=== PATIENT | female | born 1980 | race Hispanic/Latino ===

== ENCOUNTER → 2018-05-15 11:55 | Outpatient (CLI) | payer OTHER, SELFPAY ==
[2018-05-15 19:45] LABS: HIV 1 and 2 Antibody NEGATIVE (NEGATIVE)
[2018-05-20 10:57] LABS: Hepatitis A Antibody IgM NONREACTIVE; Hepatitis Acute Panel Interp 0.03; Hepatitis B Core Antibody IgM NONREACTIVE; Hepatitis B Surface Antigen NONREACTIVE; Hepatitis C Antibody NONREACTIVE
== END ==
PROVIDERS: Family Provider Family Medicine; PCP Family Medicine; Visit Provider Family Medicine
DX: Z11.3 Encounter for screening for infections with a predominantly sexual mode of transmission (principal); Z12.4 Encounter for screening for malignant neoplasm of cervix; Z11.51 Encounter for screening for human papillomavirus (HPV); Z20.2 Contact with and (suspected) exposure to infections with a predominantly sexual mode of transmission
CPT/HCPCS: 36415; 80074; 86703

== ENCOUNTER → 2019-02-20 10:10 | Outpatient (CLI) | payer OTHER, SELFPAY ==
[2019-02-20 11:09] LABS: Add Manual Diff / Slide Review NO; Basophils Absolute Auto 100 /uL (0-100); Basophils Percent Auto 1.1 % (0-2); Eosinophils Absolute Auto 0 /uL (0-450); Eosinophils Percent Auto 0.3 % (2-4); Hematocrit 38.6 % (36-46); Hemoglobin 13.2 g/dL (12.0-16.0); Lymphocytes Absolute Auto 2500 /uL (1100-4500); Lymphocytes Percent Auto 27.6 % (25-40); Mean Corpuscular HGB Conc 34.2 % (30-36); Mean Corpuscular Hemoglobin 31.4 PG (26-34); Mean Corpuscular Volume 91.9 fL (80-100); Monocytes Absolute Auto 300 /uL (0-900); Monocytes Percent Auto 3.7 % (3-14); Neutrophils Absolute Auto 6100 /uL (1500-7000); Neutrophils Percent Auto 67.3 % (50-75); Platelet Count 198 X10^3/uL (150-400); Red Blood Cell Count 4.21 X10^6/uL (4.0-5.2); Red Cell Distribution Width 12.6 % (11.6-14.8)
[2019-02-20 11:32] LABS: Alanine Aminotransferase 13 IU/L (9-52); Albumin 4.4 g/dL (3.5-5.0); Albumin Globulin Ratio 1.4 (1.0-2.8); Alkaline Phosphatase 44 U/L (38-126); Aspartate Aminotransferase 18 IU/L (14-36); BUN Creatinine Ratio 22.9 (6-22); Bilirubin Total 0.3 mg/dL (0.2-1.3); Blood Urea Nitrogen 16 mg/dL (7-17); Calcium 9.4 mg/dL (8.4-10.2); Carbon Dioxide 25 mmol/L (22-32); Chloride 103 mmol/L (98-107); Estimated Glomerular Filt Rate > 60.0 mL/min (>60); Globulin 3.2 g/dL (1.7-4.1); Glucose 84 mg/dL (70-100); HEMOLYSIS < 15 (0-50); Potassium 5.1 mmol/L (3.4-5.1); Sodium 137 mmol/L (137-145); Total Protein 7.6 g/dL (6.3-8.2)
== END ==
PROVIDERS: PCP Family Medicine; Visit Provider Hospitalist
DX: R10.9 Unspecified abdominal pain (principal)
CPT/HCPCS: 36415; 80053; 85025

== ENCOUNTER → 2019-02-26 08:42 | Outpatient (CLI) | payer OTHER, SELFPAY ==
--- NOTE | 2019-02-26 08:46 | DI.CT.S_ITS ---
PROCEDURE: CT KIDNEY URETER BLADDER (KUB) INDICATIONS: R flank pain TECHNIQUE: Noncontrast 5 mm thick sections acquired from the diaphragms to the symphysis. 5 mm thick coronal and sagittal reformats were then performed. For radiation dose reduction, the following was used: automated exposure control, adjustment of mA and/or kV according to patient size. COMPARISON: [facility], CT, CT-IVP, 03/07/2007, 9:36. [facility], CR, CHEST 2 VIEW, 01/14/2016, 18:31. FINDINGS: Image quality: Excellent. Lung bases: Lung bases are clear. Heart size is normal. Urinary system: Along the distalmost right ureter, there is a 2 mm stone seen, as on series 2 image 83. There is associated moderate right-sided hydroureter and hydronephrosis. No nonobstructing kidney stones are seen. The kidneys demonstrate normal sizes. No left-sided hydronephrosis is seen. Other solid organs: Liver is normal in size. Gallbladder wall is not thickened. Pancreas is normal in contours. Spleen is normal in size. No adrenal nodules. Peritoneum and bowel: Unenhanced bowel loops demonstrate normal wall thickness and caliber. No free fluid or air. Incidental note is made of a normal-appearing appendix. Nodes and vessels: No retroperitoneal or mesenteric adenopathy by size criteria. Aorta and inferior vena cava are normal in caliber. Abdominal wall: No ventral hernias. Pelvis: No free pelvic fluid. No inguinal hernias or adenopathy. Bones: No suspicious bony lesions. No vertebral body compression fractures. IMPRESSION: There is a 2 mm stone seen at the right ureterovesicular junction. The stone is believed to be within the distal right ureter, although differential diagnosis includes a phlebolith immediately adjacent to the distal ureter. There is associated moderate right-sided hydroureter and hydronephrosis. Incidental note is made of: Normal appendix Dictated by: Mendez Velazquez M.D. on 02/26/2019 at 9:06 Approved by: Mendez Velazquez M.D. on 02/26/2019 at 9:11
== END ==
PROVIDERS: PCP Family Medicine; Visit Provider Hospitalist
DX: R10.9 Unspecified abdominal pain (principal); N13.2 Hydronephrosis with renal and ureteral calculous obstruction
CPT/HCPCS: 74176

== ENCOUNTER → 2019-04-28 10:29 | Outpatient (CLI) | payer OTHER, SELFPAY ==
--- NOTE | 2019-04-28 | DI.US.S_ITS ---
PROCEDURE: US RENAL COMPLETE INDICATIONS: FLANK PAIN TECHNIQUE: Real-time scanning was performed of the kidneys and bladder, with image documentation. COMPARISON: [facility], CT, CT KIDNEY URETER BLADDER (KUB), 02/26/2019, 8:53. FINDINGS: Kidneys: Kidneys are normal in size. Right kidney measures 10 point cm long; left kidney measures 11.1 cm long. Right renal cortical thickness is 1.3 cm; left renal cortical thickness is 1.4 cm. Renal cortical echotexture is normal. No hydronephrosis. 6.6 mm superior pole nonobstructing left renal calcification. Bladder: Pre-void bladder volume is 435 mL. Post-void residual is 16 mL. Pre-void images demonstrate no intraluminal masses or stones. On pre-void images, bilateral ureteral jets are noted with color Doppler interrogation. (Of note, ureteral jets may not be detectable in up to 25% of cases due to insufficient differences in specific gravity between ureteral and bladder urine). Miscellaneous: No free pelvic fluid. IMPRESSION: 6.6 mm nonobstructing left renal calcification. Dictated by: Kulwinder SALGUERO Interpreted: Krista Del Valle MD on 04/28/2019 at 17:11 Approved by: Krista Del Valle M.D. on 04/28/2019 at 18:48
== END ==
PROVIDERS: PCP Family Medicine; Visit Provider Urology
DX: R10.9 Unspecified abdominal pain (principal); N28.89 Other specified disorders of kidney and ureter
CPT/HCPCS: 76770

== ENCOUNTER → 2019-06-03 08:35 | Outpatient (CLI) | payer OTHER, SELFPAY ==
[2019-06-03 09:48] LABS: Add Manual Diff / Slide Review NO; Basophils Absolute Auto 0 /uL (0-100); Basophils Percent Auto 0.5 % (0-2); Eosinophils Absolute Auto 100 /uL (0-450); Eosinophils Percent Auto 1.2 % (2-4); Hematocrit 37.5 % (36-46); Hemoglobin 12.9 g/dL (12.0-16.0); Lymphocytes Absolute Auto 2000 /uL (1100-4500); Lymphocytes Percent Auto 35.2 % (25-40); Mean Corpuscular HGB Conc 34.2 % (30-36); Mean Corpuscular Hemoglobin 31.7 PG (26-34); Mean Corpuscular Volume 92.6 fL (80-100); Monocytes Absolute Auto 300 /uL (0-900); Monocytes Percent Auto 5.5 % (3-14); Neutrophils Absolute Auto 3300 /uL (1500-7000); Neutrophils Percent Auto 57.6 % (50-75); Platelet Count 181 X10^3/uL (150-400); Red Blood Cell Count 4.05 X10^6/uL (4.0-5.2); Red Cell Distribution Width 12.7 % (11.6-14.8); White Blood Cell Count 5.8 X10^3/uL (4.5-11.0)
[2019-06-03 10:12] LABS: Alanine Aminotransferase 14 IU/L (9-52); Albumin Globulin Ratio 1.2 (1.0-2.8); Alkaline Phosphatase 42 U/L (38-126); Aspartate Aminotransferase 21 IU/L (14-36); Bilirubin Total 0.4 mg/dL (0.2-1.3); Blood Urea Nitrogen 14 mg/dL (7-17); Calcium 8.7 mg/dL (8.4-10.2); Carbon Dioxide 28 mmol/L (22-32); Chloride 105 mmol/L (98-107); Cholesterol 188 mg/dL (140-199); Estimated Glomerular Filt Rate > 60.0 mL/min (>60); Globulin 3.3 g/dL (1.7-4.1); Glucose 92 mg/dL (70-100); HDL Cholesterol 73 mg/dL (40-60); HEMOLYSIS < 15 (0-50); LDL Cholesterol Calculated 75 mg/dL (<100); Potassium 3.7 mmol/L (3.4-5.1); Sodium 139 mmol/L (137-145); Total Protein 7.3 g/dL (6.3-8.2); Triglycerides 200 mg/dL (35-150)
[2019-06-03 10:42] LABS: TSH w/ Reflex to FT4 0.88 uIU/mL (0.47-4.68)
== END ==
PROVIDERS: PCP Family Medicine; Visit Provider Family Medicine
DX: Z00.00 Encounter for general adult medical examination without abnormal findings (principal); Z13.220 Encounter for screening for lipoid disorders; Z13.29 Encounter for screening for other suspected endocrine disorder; Z13.6 Encounter for screening for cardiovascular disorders
CPT/HCPCS: 36415; 80053; 80061; 84443; 85025

== ENCOUNTER 2019-08-31 06:33 | Day surgery (SDC) | payer OTHER, SELFPAY ==
[2019-08-31 07:06] VITALS: BMI 26.6
[2019-08-31 07:09] VITALS: BP 109/74; PULSE 84; RESP 15; TEMP 36.7; O2SAT 100
[2019-08-31] MEDS: SODIUM CHLORIDE 0.9% 1,000 ML 200 ML IV (07:17)
--- NOTE | 2019-08-31 07:39 | PM.HP.1 ---
History of Present Illness History of Present Illness Date Patient Seen: 08/31/19 Time Patient Seen: 07:39 Chief complaint: [id number] Narrative: This is a 39-year-old female with a family history of colorectal cancer. There been no interval changes in her health. Please refer to the H& P dictated 07/10/2019 for further detail. Patient History Surgical History Anesthesia (Resolved) Status post dilation and curettage (Resolved 2001) Family & Social History Family History Father Age: 61 Hypertension Hyperlipidemia Mother Cancer Colon cancer Social History: household members spouse Tobacco & Substance use: Smoking Status Never smoker Meds Home Medications and Allergies Home Medications Medication Instructions Recorded Confirmed Type drospirenone 3 mg-ethinyl 1 tab PO QDAY #3 packet 06/08/19 08/31/19 Rx estradiol 0.03 mg tablet Allergies Allergy/AdvReac Type Severity Reaction Status Date / Time omeprazole [OMEPRAZOLE] Allergy Unknown RASH Verified 08/31/19 07:04 Review of Systems Review of Systems Narrative: A complete review of systems is negative except as noted in the HPI Exam Vital Signs (past 8 hours): - 08/31/19 07:09 Temperature 98.0 F Pulse Rate 84 Respiratory Rate 15 Blood Pressure 109/74 Pulse Oximetry 100 Oxygen Delivery Method Room Air Narrative Exam Narrative: General-no acute distress, well nourished HEENT-moist mucous membranes, no scleral icterus Neck-supple, no lymphadenopathy Chest- non labored respirations, clear to auscultation bilaterally Cardiac-regular rate no peripheral edema Abdomen-soft, nontender, non distended Extremities-warm, well perfused Neurological-alert and oriented, no focal deficits Assessment & Plan Assessment and plan (1) Screening for colon cancer: Current visit: No Status: Acute Assessment & Plan narrative: The patient requires colorectal screening and colonoscopy is recommended. Technical details were discussed. Risks, benefits, alternatives explained. Risks including but not limited to myocardial infarction, aspiration, bleeding, pain, missed lesion, incomplete examination, need for further radiographic studies, colonic perforation, and need for major abdominal surgery were discussed. All questions were answered to their satisfaction, and they are in agreement with this plan.
[2019-08-31] MEDS: fentaNYL 250 MCG/5 ML INJ IV (07:58)
[2019-08-31] MEDS: MIDAZOLAM 5 MG/5 ML VIAL IV (07:59)
--- NOTE | 2019-08-31 08:17 | PM.OP.ENDO ---
Operative Date/Time/Diagnoses Date of procedure: 08/31/19 Time of procedure: 08:17 Pre-op diagnosis: screening colonoscopy family history of colon cancer Post-op diagnosis: same Procedure & Clinicians Study performed: colonoscopy Same procedure as scheduled: Yes Indications: Is the 39-year-old female with a with first-degree family member with colon cancer who presents for screening Surgeon: Sandip Mendoza Procedure Notes SCOAP/Timeout: performed Procedure in detail: Patient placed in left lateral decubitus position. Time out was performed. Procedural sedation was administered with Versed and Fentanyl. A rectal exam demonstrated no external hemorrhoids no internal masses. Colonoscopy scope was placed into the rectum and advanced through the colon to the cecum. The ileocecal valve was identified. The scope was then slowly withdrawn examining colon thoroughly in all directions. The colonoscopy was notable for the following 1. No masses or polyps 2. Quality of prep excellent 3. Scope withdrawal time: 6 Sedation minutes: 20 Specimen(s): none sent Complications: none Impression: Normal colonoscopy Post-procedure Recommendations: Colonscopy in 5 years Disposition: same day surgery
[2019-08-31 08:19] VITALS: BP 111/72; PULSE 73; RESP 22; TEMP 36.2; O2SAT 97
[2019-08-31 08:24] VITALS: BP 112/69; PULSE 80; RESP 13; O2SAT 99
[2019-08-31 08:30] VITALS: BP 99/64; PULSE 70; RESP 14; O2SAT 100
[2019-08-31 08:55] VITALS: BP 106/65; PULSE 76; RESP 12; TEMP 36.1; O2SAT 98
== END 2019-08-31 09:06 | disposition home or self-care (01) ==
PROVIDERS: PCP Family Medicine; Visit Provider Surgery
PROC: 0DJD8ZZ Inspection of Lower Intestinal Tract, Via Natural or Artificial Opening Endoscopic (ICD-10-PCS; CPT 45378; principal; 2019-08-31 07:45)
DX: Z12.11 Encounter for screening for malignant neoplasm of colon (principal); Z80.0 Family history of malignant neoplasm of digestive organs
CPT/HCPCS: 45378; 99152; J2250; J3010

== ENCOUNTER → 2021-01-06 08:06 | Outpatient (CLI) | payer OTHER, SELFPAY ==
[2021-01-06 09:18] LABS: Add Manual Diff / Slide Review NO; Basophils Absolute Auto 0 /uL (0-100); Basophils Percent Auto 0.4 % (0-2); Eosinophils Absolute Auto 100 /uL (0-450); Eosinophils Percent Auto 1.1 % (2-4); Hematocrit 37.7 % (36-46); Hemoglobin 12.7 g/dL (12.0-16.0); Lymphocytes Absolute Auto 2300 /uL (1100-4500); Lymphocytes Percent Auto 38.7 % (25-40); Mean Corpuscular HGB Conc 33.5 % (30-36); Mean Corpuscular Hemoglobin 31.7 PG (26-34); Mean Corpuscular Volume 94.6 fL (80-100); Monocytes Absolute Auto 300 /uL (0-900); Neutrophils Absolute Auto 3300 /uL (1500-7000); Neutrophils Percent Auto 54.8 % (50-75); Platelet Count 179 X10^3/uL (150-400); Red Blood Cell Count 3.99 X10^6/uL (4.0-5.2); Red Cell Distribution Width 12.8 % (11.6-14.8)
[2021-01-06 09:39] LABS: Alanine Aminotransferase 19 IU/L (<35); Albumin 4.3 g/dL (3.5-5.0); Albumin Globulin Ratio 1.3 (1.0-2.8); Alkaline Phosphatase 45 U/L (38-126); Aspartate Aminotransferase 24 IU/L (14-36); BUN Creatinine Ratio 22.4 (6-22); Bilirubin Total 0.4 mg/dL (0.2-1.3); Blood Urea Nitrogen 17 mg/dL (7-17); Calcium 9.6 mg/dL (8.4-10.2); Carbon Dioxide 27 mmol/L (22-32); Chloride 104 mmol/L (98-107); Cholesterol 222 mg/dL (140-199); Estimated Glomerular Filt Rate > 60.0 mL/min (>60); Globulin 3.2 g/dL (1.7-4.1); Glucose 90 mg/dL (70-100); HDL Cholesterol 75 mg/dL (40-60); HEMOLYSIS < 15 (0-50); LDL Cholesterol Calculated 113 mg/dL (<100); Potassium 4.3 mmol/L (3.4-5.1); Sodium 136 mmol/L (137-145); Total Protein 7.5 g/dL (6.3-8.2); Triglycerides 168 mg/dL (35-150)
[2021-01-06 10:10] LABS: TSH w/ Reflex to FT4 1.23 uIU/mL (0.47-4.68)
== END ==
PROVIDERS: PCP Family Medicine; Referring Provider Family Medicine; Visit Provider Family Medicine
DX: Z13.220 Encounter for screening for lipoid disorders (principal); Z13.29 Encounter for screening for other suspected endocrine disorder; Z13.6 Encounter for screening for cardiovascular disorders
CPT/HCPCS: 36415; 80053; 80061; 84443; 85025

== ENCOUNTER → 2021-02-03 13:32 | Outpatient (CLI) | payer OTHER, SELFPAY ==
[2021-02-03 14:49] LABS: COVID19 -Nasal RAPID POSITIVE (Negative)
== END ==
PROVIDERS: PCP Family Medicine; Visit Provider Student in an Organized Health Care Education/Training Program
DX: U07.1 COVID-19 (principal)
CPT/HCPCS: 87635

== ENCOUNTER → 2021-10-06 14:14 | Outpatient (CLI) | payer OTHER, SELFPAY ==
--- NOTE | 2021-10-06 14:15 | DI.MG.S_ITS ---
BILATERAL DIGITAL SCREENING MAMMOGRAM 3D/2D WITH CAD: 10/06/2021 CLINICAL: Baseline exam. Routine screening. No prior exams were available for comparison. There are scattered fibroglandular elements in both breasts. Current study was also evaluated with a Computer Aided Detection (CAD) system. No significant masses, calcifications, or other findings are seen in either breast. IMPRESSION: NEGATIVE There is no mammographic evidence of malignancy. A 1 year screening mammogram is recommended. This exam was interpreted at Station ID: [id number]. NOTE: For mammograms, a report in lay terms will be sent to the patient. Approximately 15% of breast malignancies will not be visualized mammographically. In the management of a palpable breast mass, a negative mammogram must not discourage biopsy of a clinically suspicious lesion. Electronically Signed By: Jas lyles/kay:10/06/2021 16:32:45 letter sent: Normal Exam ACR BI-RADS Category 1: Negative 3341F
== END ==
PROVIDERS: PCP Family Medicine; Referring Provider Family Medicine; Visit Provider Family Medicine
DX: Z12.31 Encounter for screening mammogram for malignant neoplasm of breast (principal)
CPT/HCPCS: 77063; 77067

== ENCOUNTER → 2022-12-06 15:13 | Outpatient (CLI) | payer OTHER, SELFPAY ==
--- NOTE | 2022-12-06 15:15 | DI.MG.S_ITS ---
BILATERAL DIGITAL SCREENING MAMMOGRAM 3D/2D WITH CAD: 12/06/2022 CLINICAL: Routine screening. Comparison is made to exam dated: 10/06/2021 mammogram - [facility]. There are scattered areas of fibroglandular density in both breasts (category b / 25%-50% glandular tissue). Current study was also evaluated with a Computer Aided Detection (CAD) system. No significant masses, calcifications, or other findings are seen in either breast. There has been no significant interval change. IMPRESSION: NEGATIVE There is no mammographic evidence of malignancy. A 1 year screening mammogram is recommended. Based on the Tyrer Cuzick model (a risk assessment model) the patient's lifetime risk is 6.5% and her 10 year risk is 0.9%. According to the ACR, ACS, and NCCN guidelines, an annual breast MRI exam along with mammogram is recommended if the patient's lifetime risk is 20% or greater. This exam was interpreted at Station ID: [id number]. NOTE: For mammograms, a report in lay terms will be sent to the patient. Approximately 15% of breast malignancies will not be visualized mammographically. In the management of a palpable breast mass, a negative mammogram must not discourage biopsy of a clinically suspicious lesion. Electronically Signed By: Ephraim Ramirez M.D., jr/kay:12/07/2022 13:55:53 letter sent: Normal Exam ACR BI-RADS Category 1: Negative 3341F
== END ==
PROVIDERS: PCP Family Medicine; Referring Provider Family Medicine; Visit Provider Family Medicine
DX: Z12.31 Encounter for screening mammogram for malignant neoplasm of breast (principal)
CPT/HCPCS: 77063; 77067

== ENCOUNTER → 2023-03-29 11:13 | Outpatient (CLI) | payer OTHER, SELFPAY ==
--- NOTE | 2023-03-29 11:14 | DI.RAD.S_ITS ---
PROCEDURE: XR LUMBAR SPINE MIN 4V INDICATIONS: Left lateral hip pain mild low back pain TECHNIQUE: 5 views of the lumbar spine were acquired, including bilateral oblique views. COMPARISON: None. FINDINGS: Bones: 5 nonrib-bearing vertebrae are present. There is normal bony alignment. No vertebral body compression fractures. No suspicious bony lesions. Mild degenerative disc disease at L2-L3, L3-L4 and L4-L5. Mild facet arthropathy at L3-L4, L4-L5 and L5-S1. Soft tissues: Overlying bowel gas pattern is normal. No suspicious soft tissue calcifications. Oblique images: No pars defects. IMPRESSION: Mild degenerative disc and facet disease. Dictated by: Tracee Dominguez M.D. on 03/29/2023 at 15:07 Approved by: Tracee Dominguez M.D. on 03/29/2023 at 15:08
--- NOTE | 2023-03-29 11:14 | DI.RAD.S_ITS ---
PROCEDURE: XR HIP W PEL IF DONE DOREEN MIN 4V INDICATIONS: Bilateral hip pain L > R TECHNIQUE: AP pelvis with lateral view(s) of the right hip(s). COMPARISON: None. FINDINGS: Bones: No fractures or dislocations. Pelvic ring appears intact. No suspicious bony lesions. Mild symmetric hip and sacroiliac joint degeneration bilaterally. Soft tissues: The visualized bowel gas pattern is normal. No suspicious soft tissue calcifications. IMPRESSION: Mild degenerative joint disease. Dictated by: Tracee Dominguez M.D. on 03/29/2023 at 15:45 Approved by: Tracee Dominguez M.D. on 03/29/2023 at 15:46
== END ==
PROVIDERS: PCP Family Medicine; Referring Provider Physician Assistant; Visit Provider Physician Assistant
DX: M51.36 Other intervertebral disc degeneration, lumbar region (principal); M47.816 Spondylosis without myelopathy or radiculopathy, lumbar region; M47.817 Spondylosis without myelopathy or radiculopathy, lumbosacral region; M47.818 Spondylosis without myelopathy or radiculopathy, sacral and sacrococcygeal region; M16.0 Bilateral primary osteoarthritis of hip; G57.10 Meralgia paresthetica, unspecified lower limb; M54.50 Low back pain, unspecified; M25.551 Pain in right hip; M25.552 Pain in left hip
CPT/HCPCS: 72110; 73522

== ENCOUNTER → 2024-02-21 11:10 | Outpatient (CLI) | payer OTHER, SELFPAY ==
--- NOTE | 2024-02-21 11:24 | DI.MG.S_ITS ---
BILATERAL DIGITAL SCREENING MAMMOGRAM 3D/2D WITH CAD: 02/21/2024 CLINICAL: Routine screening. Comparison is made to exams dated: 12/06/2022 mammogram and 10/06/2021 mammogram - [facility]. Both breasts are almost entirely fatty (category a/<25% glandular tissue). Current study was also evaluated with a Computer Aided Detection (CAD) system. No significant masses, calcifications, or other findings are seen in either breast. There has been no significant interval change. IMPRESSION: NEGATIVE There is no mammographic evidence of malignancy. A 1 year screening mammogram is recommended. Based on the Tyrer Cuzick model (a risk assessment model) the patient's lifetime risk is 4.3% and her 10 year risk is 0.7%. According to the ACR, ACS, and NCCN guidelines, an annual breast MRI exam along with mammogram is recommended if the patient's lifetime risk is 20% or greater. This exam was interpreted at Station ID: [id number]. NOTE: For mammograms, a report in lay terms will be sent to the patient. Approximately 15% of breast malignancies will not be visualized mammographically. In the management of a palpable breast mass, a negative mammogram must not discourage biopsy of a clinically suspicious lesion. Electronically Signed By: Suyapa lopez/kay:02/21/2024 14:40:42 letter sent: Normal Exam ACR BI-RADS Category 1: Negative 3341F
== END ==
PROVIDERS: PCP Family Medicine; Referring Provider Family Medicine; Visit Provider Family Medicine
DX: Z12.31 Encounter for screening mammogram for malignant neoplasm of breast (principal); R92.313 Mammographic fatty tissue density, bilateral breasts
CPT/HCPCS: 77063; 77067

== ENCOUNTER → 2024-03-18 10:31 | Outpatient (CLI) | payer OTHER, SELFPAY ==
[2024-03-18 11:50] LABS: Add Manual Diff / Slide Review NO; Basophils Absolute Auto 0 /uL (0-100); Basophils Percent Auto 0.6 % (0-2); Eosinophils Absolute Auto 100 /uL (0-450); Eosinophils Percent Auto 0.8 % (2-4); Hematocrit 38.4 % (36-46); Hemoglobin 13.1 g/dL (12.0-16.0); Lymphocytes Absolute Auto 2200 /uL (1100-4500); Mean Corpuscular HGB Conc 34.1 % (30-36); Mean Corpuscular Hemoglobin 31.6 PG (26-34); Mean Corpuscular Volume 92.6 fL (80-100); Monocytes Absolute Auto 300 /uL (0-900); Monocytes Percent Auto 3.9 % (3-14); Neutrophils Absolute Auto 4300 /uL (1500-7000); Neutrophils Percent Auto 62.7 % (50-75); Platelet Count 189 X10^3/uL (150-400); Red Blood Cell Count 4.14 X10^6/uL (4.0-5.2); White Blood Cell Count 6.9 X10^3/uL (4.5-11.0)
[2024-03-18 12:16] LABS: Alanine Aminotransferase 15 IU/L (<35); Albumin 4.4 g/dL (3.5-5.0); Albumin Globulin Ratio 1.3 (1.0-2.8); Alkaline Phosphatase 54 U/L (38-126); Aspartate Aminotransferase 21 IU/L (14-36); BUN Creatinine Ratio 16.9 (6-22); Bilirubin Total 0.5 mg/dL (0.2-1.3); Blood Urea Nitrogen 12 mg/dL (7-17); Calcium 8.8 mg/dL (8.4-10.2); Carbon Dioxide 26 mmol/L (22-32); Chloride 106 mmol/L (98-107); Cholesterol 216 mg/dL (140-199); Estimated Glomerular Filt Rate > 60 mL/min (>60); Globulin 3.4 g/dL (1.7-4.1); Glucose 92 mg/dL (70-100); HDL Cholesterol 81 mg/dL (40-60); HEMOLYSIS < 15 (0-50); LDL Cholesterol Calculated 98 mg/dL (<100); Potassium 4.1 mmol/L (3.4-5.1); Sodium 138 mmol/L (137-145); Total Protein 7.8 g/dL (6.3-8.2); Triglycerides 183 mg/dL (35-150)
[2024-03-18 12:47] LABS: TSH w/ Reflex to FT4 0.59 uIU/mL (0.47-4.68)
== END ==
PROVIDERS: PCP Family Medicine; Referring Provider Physician Assistant; Visit Provider Physician Assistant
DX: Z13.220 Encounter for screening for lipoid disorders (principal); Z13.6 Encounter for screening for cardiovascular disorders; Z13.0 Encounter for screening for diseases of the blood and blood-forming organs and certain disorders involving the immune mechanism; Z13.1 Encounter for screening for diabetes mellitus; Z13.29 Encounter for screening for other suspected endocrine disorder
CPT/HCPCS: 36415; 80053; 80061; 84443; 85025